=== PATIENT | male | born 2005 | race Two or more races ===

== ENCOUNTER 2025-04-12 22:17 | Emergency (ER) | payer OTHER, SELFPAY ==
[2025-04-12 22:18] VITALS: BMI 34.4
[2025-04-12 22:23] VITALS: BP 125/89; PULSE 68; RESP 18; TEMP 36.6; O2SAT 97
--- NOTE | 2025-04-12 22:32 | EDNOTE_ITS ---
ED Allergic Reaction RME/HPI General Chief complaint: Allergic Reaction Stated complaint: ALLERGIC REACTION TO FACE Time Seen by Provider: 04/12/25 22:34 Arrival date/time: 04/12/25 22:17 RME / HPI RME / HPI narrative: This section includes all my notes and documentations, including HPI, PE, and ED course. Orlando Hines MD HPI: 19 y/o male presents with several hours of severe red rash everywhere with severe itching s/p working outside in the [place]. Denies SOB. No throat tightness. No other complaints. ROS: All negative except as documented in HPI. Physical Exam: General: Alert and oriented. No acute distress when remaining still. Eyes: Conjunctivae and lids clear. ENT: No nasal congestion. Pharynx normal. TM normal bilaterally. Patent airway. Neck: Supple. Heart: RRR. Lungs: No respiratory distress. Decreased air movement. No rhonchi, wheezing, rales. Abdomen: Soft and nontender. Skin: Warm and dry. Diffuse and severe hives noted. Neuro: Alert and oriented X 3. I reviewed all diagnostic test results: My interpretation of the chest x-ray is: NAD. Blood tests unremarkable. At this point, diagnoses include: Allergic reaction. Treatment here included: IVF, Duoneb 3 mL, Benadryl 50 mg, Pepcid 20 mg, Toradol 30 mg, Zofran 4 mg. Significant improvement noted. Recommended outpatient care. Based on my best medical judgment, made decision no further evaluation or treatment indicated at this time. Patient understands and agrees to the discharge instructions customized and printed, see below. Discharge instructions from Dr. Hines: 1. You were treated today for allergic reaction. 2. To help prevent the reaction going into your airways and your throat, take prednisone as prescribed. 3. And take Benadryl 50 mg every 6-8 hours today and tomorrow then as needed. 4. Increase oral fluid and maintain clear urine.? If dark or yellow, increase oral fluid.? This will help eliminate any allergens in your blood system. 5. See your private doctor on 04/16/2025 for recheck. Ask for a referral to see an dog pound attendant so you can be tested to know what to avoid in the future. 6. Seek immediate medical care with worsening, breathing difficulty, or with any concerns. Orlando Hines MD Related Data Previous Rx's ?Medication ?Instructions ?Recorded prednisone 50 mg tablet 50 mg PO BID 2 days #4 tabs 04/13/25 Allergies Allergy/AdvReac Type Severity Reaction Status Date / Time No Known Allergies Allergy Mild Uncoded 06/12/09 23:46 Review of Systems Review of Systems Systems Reviewed: All systems reviewed, normal except as documented Past Medical History Social History SMOKING STATUS: Never smoker ED Exam Narrative Physical exam: Refer to HPI Course Course Course Narrative: CXR is ordered for determining the etiology of shortness of breath. Quality Measures none Orders Category Date Time Status Saline [Insert IV] NOW Care 04/12/25 22:34 Completed XR chest 1V portable Stat Exams 04/12/25 22:36 Completed BMP [Basic Metabolic Panel] Stat Lab 04/12/25 22:39 Completed CBC Stat Lab 04/12/25 22:39 Completed Magnesium Stat Lab 04/12/25 22:39 Completed Albuterol/Ipratr Rt Lo [Duoneb Rt Lo] Med 04/12/25 22:34 Discontinued 3 ml INH X1 ONE DiphenhydrAMINE INJ [Benadryl Inj] Med 04/12/25 22:34 Discontinued 50 mg IVP X1 STA Famotidine Inj [Pepcid Inj] Med 04/12/25 22:34 Discontinued 20 mg IVP X1 ONE Ketorolac Inj [Toradol Inj] Med 04/12/25 22:34 Discontinued 30 mg IVP X1 ONE MethylPREDNISolone.* [SoluMEDROL Inj] Med 04/12/25 22:35 Discontinued 125 mg IVP X1 ONE Ondansetron Inj [Zofran Inj] Med 04/12/25 22:34 Discontinued 4 mg IVP X1 ONE Sodium Chloride 0.9% 1000 ml [Ns] 1,000 ml Med 04/12/25 22:34 Discontinued IV 999 mls/hr Vital Signs Vital signs: Vital Signs Temperature 97.9 F 04/12/25 22:23 Pulse Rate 68 04/12/25 22:23 Respiratory Rate 18 04/12/25 22:23 Blood Pressure 125/89 H 04/12/25 22:23 Pulse Oximetry (%) 97 04/12/25 22:23 Oxygen Delivery Method CPAP 04/12/25 22:23 Allergic Reaction MDM Narrative MDM Narrative:: Scribe Attestation: I, Doretha Laurent, am scribing for and in the presence of Dr. Hines. Provider Notation: Although this document has been carefully reviewed, there may still be some phonetic and other typographical errors.? These errors are purely grammatical due to imperfections in the software program and should not be construed in any way to? compromise the substance of the patient's medical care during this visit. 19 y/o male presents with several hours of severe red rash everywhere with itching s/p working outside in the [place]. Denies SOB. No other complaints. Patient data External records reviewed:: [facility] previous records (No prior ED records available for review.) Clinical information provided by:: patient Social determinants that could affect healthcare access:: none Patient has the following chronic illnesses:: None reported How is presenting disease/condition affected by chronic disease/condition?: no chronic disease Evaluation data The following diagnostics were reviewed and interpreted by me:: lab results and radiology exam(s) Lab and/or radiology exams considered but not ordered:: None Interpretation Summary: I reviewed all diagnostic test results: My interpretation of the chest x-ray is: NAD. Blood tests unremarkable. Medications / Prescriptions Medications or Prescriptions considered but not ordered:: None Medication administrations:: Medication Administration History Discontinued Medications Albuterol/Ipratropium (Albuterol/Ipratropium (Duoneb) Rt Lo 3 Ml Nebu) 3 ml INH X1 ONE Stop: 04/12/25 22:35 Last Admin: 04/12/25 23:16 Dose: 3 ml Documented By: KB Diphenhydramine HCl (Diphenhydramine Inj 50 Mg/Ml Vial) 50 mg IVP X1 STA Stop: 04/12/25 22:35 Last Admin: 04/12/25 22:46 Dose: 50 mg Documented By: EF Famotidine (Famotidine Inj 10 Mg/Ml Vial 2 Ml) 20 mg IVP X1 ONE Stop: 04/12/25 22:35 Last Admin: 04/12/25 22:46 Dose: 20 mg Documented By: EF Sodium Chloride (Ns) 1,000 mls @ 999 mls/hr IV .Q1H1M ONE Stop: 04/12/25 23:34 Last Infusion: 04/12/25 23:52 Dose: Infused Documented By: Admin: 04/12/25 22:45 Dose: 999 mls/hr Documented By: EF Ketorolac Tromethamine (Ketorolac Inj 30 Mg/Ml Vial) 30 mg IVP X1 ONE Stop: 04/12/25 22:35 Last Admin: 04/12/25 22:46 Dose: 30 mg Documented By: EF Methylprednisolone Sodium Succinate (Methylprednisolone Sod Succ 62.5 Mg/Ml 2ml Vial) 125 mg IVP X1 ONE Stop: 04/12/25 22:36 Last Admin: 04/12/25 22:46 Dose: 125 mg Documented By: EF Ondansetron HCl (Ondansetron Inj 2 Mg/Ml Inj 2 Ml) 4 mg IVP X1 ONE; Protocol Stop: 04/12/25 22:35 Last Admin: 04/12/25 22:45 Dose: 4 mg Documented By: EF IVF, Duoneb 3 mL, Benadryl 50 mg, Pepcid 20 mg, Toradol 30 mg, Zofran 4 mg. Consultations Consultation(s) initiated? (list below): No Diagnosis Differential Diagnosis allergic reaction: anaphylaxis, allergic reaction, angioedema, contact dermatitis, adverse reaction to drug, viral enanthem and urticaria Most likely diagnosis given after review of the tests above:: Allergic reaction Admission Indicated Admission indicated?: not indicated Explain why admission is indicated or not indicated:: With significant improvement and no condition needing emergent intervention, there was no indication for admission. Admission Request Was there a request for admission?: No Disposition Plan Disposition Plan: Discharge Discharge Attestation Discharge Attestation: The patient and all family members were given an opportunity to ask questions and understood the discharge instructions. Discharge instructions specifically effects, indications for sooner follow up or return to the emergency department, and the expected course of current diagnosis. Patient condition: Stable Discharge Plan Plan Patient Disposition: HOME (Self Care) Prescriptions/Referrals Prescriptions/Med Rec: New prednisone 50 mg tablet 50 mg PO BID 2 Days Qty: 4 0RF Referrals: Temporary Provider,ED [Physician] - In 1 week Problem List Clinical Impression: Allergic reaction Patient/Caregiver Discharge Instructions Discharge Activity: activity as tolerated Education Materials: ED General Allergic Reactions Additional Instructions: Discharge instructions from Dr. Hines: 1. You were treated today for allergic reaction. 2. To help prevent the reaction going into your airways and your throat, take prednisone as prescribed. 3. And take Benadryl 50 mg every 6-8 hours today and tomorrow then as needed. 4. Increase oral fluid and maintain clear urine.? If dark or yellow, increase oral fluid.? This will help eliminate any allergens in your blood system. 5. See your private doctor on 04/16/2025 for recheck. Ask for a referral to see an dog pound attendant so you can be tested to know what to avoid in the future. 6. Seek immediate medical care with worsening, breathing difficulty, or with any concerns. Print Language: Citizen Of [place] Stand Alone Forms: [employer] Award Info., Work/School Release, Patient Portal Info Letter
--- NOTE | 2025-04-12 22:36 | XR_ITS ---
Examination: AP chest single view TECHNIQUE: AP portable upright chest single view Date and time: April 12, 2025 1059 hours INDICATIONS: Chest pain and shortness of breath today. FINDINGS: Normal heart size. Lungs are clear. The osseous structures are intact. IMPRESSION: No active disease.
[2025-04-12 22:37] VITALS: BP 136/84; PULSE 69; RESP 18; TEMP 36.8; O2SAT 95; BMI 36.9
[2025-04-12] MEDS: ONDANSETRON INJ 2 MG/ML INJ 2 ML 4 MG IVP (22:45)
[2025-04-12] MEDS: SODIUM CHLORIDE 0.9% 1000 ML 1,000 ML 999 ML IV (22:45)
[2025-04-12] MEDS: KETOROLAC INJ 30 MG/ML VIAL IVP (22:46)
[2025-04-12] MEDS: MethylPREDNISolone SOD SUCC 62.5 MG/ML 2ML VIAL 125 MG IVP (22:46)
[2025-04-12] MEDS: FAMOTIDINE INJ 10 MG/ML VIAL 2 ML 20 MG IVP (22:46)
[2025-04-12 22:59] LABS: Basophils # (Auto) 0.0 Thou/mm3 (0.0-0.2); Basophils % (Auto) 0 % (0-2.5); Eosinophils # (Auto) 0.2 Thou/mm3 (0.0-0.5); Eosinophils % (Auto) 2 % (0-10); Hematocrit 49.7 % (41.0-53.0); Hemoglobin 16.7 g/dL (13.5-16.0); Immature Granulocytes Auto 0.03 Thou/mm3 (0.00-0.00); Lymphocytes # (Auto) 3.3 Thou/mm3 (1.0-5.0); Lymphocytes % (Auto) 29 % (10-50); Mean Corpuscular HGB Conc 33.6 g/dl (31.0-37.0); Mean Corpuscular Hemoglobin 29.2 pg (25.0-35.0); Mean Corpuscular Volume 87 fL (80-100); Monocytes # (Auto) 1.1 Thou/mm3 (0.0-0.8); Monocytes % (Auto) 10 % (0-12); Neutrophils # (Auto) 6.8 Thou/mm3 (1.8-7.7); Neutrophils % (Auto) 60 % (37-80); Nucleated Red Blood Cell # 0.00 Thou/mm3 (0.00-0.00); Nucleated Red Blood Cell % 0 /100 WBC (0); Platelet Count 201 Thou/mm3 (140-440); RDW Standard Deviation 41.1 fL (35.1-43.9); Red Blood Count 5.71 Miln/mm3 (4.50-5.90); White Blood Count 11.4 Thou/mm3 (4.5-11.0)
[2025-04-12] MEDS: ALBUTEROL/IPRATROPIUM (Duoneb) RT SOL 3 ML NEBU INH (23:16)
[2025-04-12 23:17] VITALS: PULSE 67; RESP 20; O2SAT 100
[2025-04-12 23:36] LABS: Anion Gap 9 (7-16); BUN/Creatinine Ratio 10 Ratio (12-20); Blood Urea Nitrogen 14 mg/dL (9-23); Calcium 9.8 mg/dL (8.3-10.6); Carbon Dioxide 28.9 mMol/L (20.0-31.0); Chloride 106 mMol/L (98-107); Creatinine (Component) 1.4 mg/dL (0.6-1.3); Estimated Creatinine Clearance 98.9 mL/min (>60); Glucose 85 mg/dL (74-106); Magnesium 2.0 mg/dL (1.6-2.6); Osmolality,Calculated 286 (275-295); Potassium 3.8 mMol/L (3.4-5.1); Sodium 144 mMol/L (136-145); eGFR > 60 See Note
[2025-04-13 00:31] VITALS: BP 132/72; PULSE 81; RESP 17; O2SAT 97
== END 2025-04-13 00:33 | disposition home or self-care (01) ==
PROVIDERS: Emergency Provider Emergency Medicine
DX: R21 Rash and other nonspecific skin eruption (principal); R07.9 Chest pain, unspecified; R06.02 Shortness of breath
CPT/HCPCS: 36415; 71045; 80048; 83735; 85025; 94640; 96361; 96374; 96375; 99283; A9270; J1200; J1885; J2405; J2919; J3490; J7030